=== PATIENT | female | born 1965 ===

== ENCOUNTER 2018-09-14 13:39 | Outpatient (CLI) | payer OTHER ==
[~2018-09-14 13:39] MED LIST: CELEXA20 MG PO; CELEXA40 MG PO; DOXEPIN HCL100 MG PO; FURO40TA93 PO; TRAM50TA PO
== END 2018-09-14 19:14 | disposition home or self-care (01) ==
LOC: RAD 13:39
DX: M25.561 Pain in right knee (principal); M25.562 Pain in left knee

== ENCOUNTER 2019-12-06 14:59 | Outpatient (CLI) | payer OTHER | END 2019-12-06 19:21 | disposition home or self-care (01) | LOC: RAD 14:59 | DX: M25.561 Pain in right knee (principal); M25.562 Pain in left knee ==